=== PATIENT | female | born 1985 | race African-American/Black ===

== ENCOUNTER 2016-04-23 03:35 | Emergency (ER) | payer MEDICAID ==
[2016-04-23] MEDS ORDERED: PREDNISONE 50 MG TAB ONE (04:10)
[2016-04-23] MEDS ORDERED: DUONEB INH ONE (04:26)
== END 2016-04-23 04:56 | disposition home or self-care (01) ==
LOC: ER 03:35
DX: J45.31 Mild persistent asthma with (acute) exacerbation (principal); F41.9 Anxiety disorder, unspecified; Z79.899 Other long term (current) drug therapy
CPT/HCPCS: 36415; 71010; 80053; 82553; 83880; 84484; 85025; 93005; 94640